=== PATIENT | female | born 1965 | race American Indian/Alaskan Native ===

== ENCOUNTER 2018-05-23 09:02 | Emergency (ER) | payer SELFPAY ==
[2018-05-23 09:19] VITALS: RESP 18; O2SAT 100
[2018-05-23 09:20] VITALS: BMI 32.9
[2018-05-23] MEDS ORDERED: Naproxen 550 mg Tab PO STA (10:04)
[2018-05-23] MEDS ORDERED: Naproxen 550 mg Tab PO ONE (10:15)
--- NOTE | 2018-05-23 11:19 | RAD ---
Date of service: 05/23/2018 HISTORY: Cough for 2 weeks COMPARISON: 12/04/2017 TECHNIQUE: Chest PA and lateral FINDINGS: LUNGS: No consolidation seen. In the infrahilar location a 1.7 cm nodular opacity on the lateral view is currently noted this is difficult to perceive on the prior study. This could represent a prominent vessel seen on end. Its frontal localization position is not clearly appreciated.. Is not well seen on the prior study. This is a difficult area to evaluate with conventional radiographs. PLEURA: No significant pleural effusion identified. No pneumothorax apparent. Probable biapical pleural thickening. CARDIOVASCULAR: No aortic atherosclerotic calcification present. Cardiomegaly-similar No significant appearing pulmonary venous congestion. OSSEOUS STRUCTURES: Thoracic spondylosis. VISUALIZED UPPER ABDOMEN: Normal. OTHER FINDINGS: None. IMPRESSION: No interval consolidative infiltrate Per the lateral view the 1.7 cm nodular opacity approximately 3 to 4 cm inferior to the expected position of the keara is indeterminate in its clinical significance, if any. Prominent vessel on end is 1 consideration. A central pulmonary nodule is not excluded. This is not appreciated as such on the prior study and is difficult to perceive or localized on the current frontal view. Consider CT of the chest to clarify Comments: Study marked for PA review .
[2018-05-23 11:41] VITALS: BP 122/73; PULSE 76; TEMP 98.4
--- NOTE | 2018-05-23 11:46 | C.PDOC ---
History Of Present Illness Pt c/o cough and congestion. She states that she slipped and fell in the rain outside on her was to the hospital this morning. She c/o mild back pain. Time Seen by Provider: 05/23/18 09:56 Chief Complaint (Nursing): Cough, Cold, Congestion History Per: Patient Onset/Duration Of Symptoms: Days (about 2 weeks) Current Symptoms Are (Timing): Still Present Associated Symptoms: Sore Throat, Cough, Nasal Congestion Severity: Moderate Additional History Per: Prior Records Past Medical History Reviewed: Historical Data, Nursing Documentation, Vital Signs Vital Signs: Last Vital Signs Temp 98.4 F 05/23/18 11:40 Pulse 76 05/23/18 11:40 Resp 18 05/23/18 11:40 BP 122/73 05/23/18 11:40 Pulse Ox 100 05/23/18 11:40 - Medical History PMH: No Chronic Diseases Family History: States: Unknown Family Hx - Social History Hx Tobacco Use: No Hx Alcohol Use: No Hx Substance Use: No - Immunization History Hx Tetanus Toxoid Vaccination: No Hx Influenza Vaccination: No Hx Pneumococcal Vaccination: No Review Of Systems Except As Marked, All Systems Reviewed And Found Negative. Constitutional: Negative for: Fever ENT: Positive for: Nose Congestion, Throat Pain. Negative for: Ear Pain Cardiovascular: Negative for: Chest Pain Respiratory: Positive for: Cough. Negative for: Shortness of Breath, Hemoptysis Gastrointestinal: Negative for: Vomiting, Abdominal Pain Musculoskeletal: Positive for: Back Pain. Negative for: Neck Pain, Leg Pain Skin: Negative for: Rash Neurological: Positive for: Headache. Negative for: Weakness, Numbness Physical Exam - Physical Exam Appears: Non-toxic, No Acute Distress Skin: Normal Color, Warm, Dry Head: Atraumatic, Normacephalic Eye(s): bilateral: PERRL, EOMI Throat: Erythema (mild), No Exudate, No Drooling, No Mass Neck: Normal ROM, Supple Cardiovascular: Rhythm Regular Respiratory: Normal Breath Sounds, No Accessory Muscle Use Gastrointestinal/Abdominal: Soft, No Tenderness Back: No CVA Tenderness, No Vertebral Tenderness Extremity: Normal ROM, No Pedal Edema, No Calf Tenderness Neurological/Psych: Oriented x3, Normal Speech, Normal Motor, Normal Sensation ED Course And Treatment O2 Sat by Pulse Oximetry: 100 Pulse Ox Interpretation: Normal - Radiology CXR: Interpreted by Me, Viewed By Me CXR Interpretation: Yes: No Acute Disease. No: Infiltrates Reassessment Condition: Improved Disposition Counseled Patient/Family Regarding: Studies Performed, Diagnosis, Need For Followup, Rx Given - Disposition Referrals: [facility] [Outside] Disposition: HOME/ ROUTINE Disposition Time: 11:47 Condition: IMPROVED Additional Instructions: Follow up in the clinic for further evaluation and treatment. Return to the ER if you develop shortness of breath, fever, weakness, numbness, worsening of symptoms or if you have any other concerns. Prescriptions: predniSONE [predniSONE Tab] 2 tab PO DAILY #10 tab Instructions: Upper Respiratory Infection (ED) Forms: [facility] (Romanian) - Clinical Impression Clinical Impression: Upper respiratory infection, Fall
== END 2018-05-23 12:03 | disposition home or self-care (01) ==
LOC: C.ER 09:02
DX: J06.9 Acute upper respiratory infection, unspecified (principal); W01.0XXA Fall on same level from slipping, tripping and stumbling without subsequent striking against object, initial encounter

== ENCOUNTER 2018-05-30 08:06 | Outpatient (CLI) | payer SELFPAY | END 2018-05-30 08:07 | disposition home or self-care (01) | LOC: C.CTH 08:06 | DX: R91.1 Solitary pulmonary nodule (principal) ==